=== PATIENT | female | born 1945 | race Caucasian/White ===

== ENCOUNTER 2018-11-09 12:38 | Outpatient (CLI) | payer OTHER | END 2018-11-09 23:59 | disposition home or self-care (01) | LOC: CVU 12:38 | PROVIDERS: ATTEND Nurse Practitioner | DX: I74.5 Embolism and thrombosis of iliac artery (principal); I10 Essential (primary) hypertension; Z87.891 Personal history of nicotine dependence | CPT/HCPCS: 93922; 93925 ==

== ENCOUNTER 2019-02-23 07:43 | Outpatient (CLI) | payer OTHER | END 2019-02-23 23:59 | disposition home or self-care (01) | LOC: STAR 07:43 | PROVIDERS: ATTEND Surgery | DX: Z01.818 Encounter for other preprocedural examination (principal) | CPT/HCPCS: 93005 ==

== ENCOUNTER 2019-11-24 09:56 | Outpatient (CLI) | payer MEDICARE, OTHER ==
[~2019-11-24 09:56] MED LIST: CALC1CAP8 PO; CLOP75TA PO; IBAN150T15 PO; LISI-170 PO; VERA120T13 PO
== END 2019-11-24 23:59 | disposition home or self-care (01) ==
LOC: CFH 09:56
PROVIDERS: ATTEND Nurse Practitioner
DX: Z12.31 Encounter for screening mammogram for malignant neoplasm of breast (principal); Z13.6 Encounter for screening for cardiovascular disorders; I10 Essential (primary) hypertension; I65.23 Occlusion and stenosis of bilateral carotid arteries; I70.209 Unspecified atherosclerosis of native arteries of extremities, unspecified extremity; I25.10 Atherosclerotic heart disease of native coronary artery without angina pectoris
CPT/HCPCS: 75571; 77063; 77067

== ENCOUNTER 2020-02-25 08:37 | Day surgery (SDC) | payer MEDICARE, OTHER ==
[~2020-02-25] VITALS: Ht 180.3 cm; Wt 81.0 kg
[2020-02-25] MEDS ORDERED: HEPARIN 1,000 UNITS/ML, 10ML ONE (09:51)
[2020-02-25] MEDS ORDERED: BIVALIRUDIN 250 MG ONE (09:51)
[2020-02-25] MEDS ORDERED: FENTANYL PF 100 MCG/2ML ONE (09:51)
[2020-02-25] MEDS ORDERED: MIDAZOLAM 1 MG/ML, 5ML ONE (09:51)
[2020-02-25] MEDS ORDERED: LIDOCAINE-MPF 1%, 5ML ONE (09:51)
[2020-02-25] MEDS ORDERED: VERAPAMIL 2.5 MG/ML, 2ML ONE (09:51)
[2020-02-25] MEDS ORDERED: TICAGRELOR 90 MG TABLET ONE (09:51)
[2020-02-25] MEDS ORDERED: ROSU20TA2 PO (09:55)
[2020-02-25] MEDS ORDERED: IBAN150T15 PO (09:57)
[2020-02-25] MEDS ORDERED: PLEASE ENTER HEIGHT AND WEIGHT MC SCH (10:00)
[2020-02-25 10:05] VITALS: BP 129/76
[2020-02-25 10:11] LABS: BASOPHILS # (AUTO) 0.04 x10^3/uL (0-0.1); BASOPHILS % (AUTO) 0 % (0-1); EOSINOPHILS # (AUTO) 0.39 x10^3/uL (0-0.4); EOSINOPHILS % (AUTO) 4 % (1-7); LYMPHOCYTES % (AUTO) 21 % (22-44); MD NO; MEAN CORPUSCULAR HEMOGLOBIN 31.1 pg (27.0-34.8); MEAN CORPUSCULAR HGB CONC 32.8 g/dL (32.4-35.8); MEAN PLATELET VOLUME 7.9 fL (7.4-10.4); MONOCYTES # (AUTO) 0.58 x10^3/uL (0.2-0.8); MONOCYTES % (AUTO) 6 % (2-9); NEUTROPHILS # (AUTO) 6.92 x10^3/uL (1.8-6.8); NEUTROPHILS % (AUTO) 69 % (42-75); PLATELET COUNT 288 x10^3/uL (130-400); RED CELL DISTRIBUTION WIDTH 13.2 % (9.6-15.2)
[2020-02-25] MEDS ORDERED: ASPI81TA45 PO (10:17)
[2020-02-25 10:19] LABS: ANION GAP 8 mmol/L (5-15); CALCIUM 9.4 mg/dL (8.5-10.1); CHLORIDE 100 mmol/L (98-107); CREATININE 0.61 mg/dL (0.55-1.02)
[2020-02-25] MEDS ORDERED: SODIUM CHLORIDE 0.9% 1,000 ML IV SCH (11:00)
== END 2020-02-25 13:15 | disposition home or self-care (01) ==
LOC: CACL 08:37
PROVIDERS: ATTEND Internal Medicine Cardiovascular Disease
DX: R93.1 Abnormal findings on diagnostic imaging of heart and coronary circulation (principal); I25.10 Atherosclerotic heart disease of native coronary artery without angina pectoris; I25.83 Coronary atherosclerosis due to lipid rich plaque; I70.209 Unspecified atherosclerosis of native arteries of extremities, unspecified extremity; I10 Essential (primary) hypertension; E78.5 Hyperlipidemia, unspecified; I71.2 Thoracic aortic aneurysm, without rupture; E55.9 Vitamin D deficiency, unspecified; E87.1 Hypo-osmolality and hyponatremia; E66.3 Overweight; Z68.25 Body mass index [BMI] 25.0-25.9, adult; Z79.02 Long term (current) use of antithrombotics/antiplatelets; Z79.82 Long term (current) use of aspirin; Z79.899 Other long term (current) drug therapy; Z87.891 Personal history of nicotine dependence
CPT/HCPCS: 36415; 80048; 85025; 93458; 99156; C1769; C1894; J1644; J2250; J3010; Q9967; J0583

== ENCOUNTER → 2020-09-13 | Outpatient (CLI) | payer MEDICARE, OTHER ==
[~2020-09-13] MED LIST changes: +ASPI81TA45 PO; +ROSU20TA2 PO
== END | disposition home or self-care (01) ==
LOC: CFH 10:56
PROVIDERS: ATTEND Nurse Practitioner
DX: M81.0 Age-related osteoporosis without current pathological fracture (principal); M85.80 Other specified disorders of bone density and structure, unspecified site
CPT/HCPCS: 77080

== ENCOUNTER 2020-10-19 08:39 | Outpatient (CLI) | payer MEDICARE, OTHER | END 2020-10-19 23:59 | disposition home or self-care (01) | LOC: RAD 08:39 | PROVIDERS: ATTEND Internal Medicine Gastroenterology | DX: K57.30 Diverticulosis of large intestine without perforation or abscess without bleeding (principal); K59.00 Constipation, unspecified | CPT/HCPCS: 74270 ==